=== PATIENT | male | born 2000 | race Caucasian/White ===

== ENCOUNTER 2020-06-03 23:55 | Emergency (ER) | payer BC ==
[2020-06-04] MEDS ORDERED: Ibuprofen 200 MG TAB ONE (01:00)
--- NOTE | 2020-06-04 07:32 | RAD ---
3 views left ankle: 06/04/2020 COMPARISON: None HISTORY: Injury, trauma, pain FINDINGS: There is lateral soft tissue swelling. The talar dome and the ankle mortise appear intact. There is no displaced fracture or dislocation seen. Anterior soft tissue swelling noted on the lateral exam with an ankle joint effusion. IMPRESSION: Soft tissue swelling, ankle joint effusion. No associated fracture or dislocation.
--- NOTE | 2020-06-04 07:32 | RAD ---
2 views left tibia fibula: 06/04/2020 COMPARISON: None HISTORY: Injury, trauma, pain FINDINGS: No fracture or dislocation. No radiopaque foreign body or subcutaneous gas. IMPRESSION: No acute findings.
== END 2020-06-04 01:10 | disposition home or self-care (01) ==
LOC: ERS 23:55
DX: M25.472 Effusion, left ankle (principal); R00.0 Tachycardia, unspecified; X50.9XXA Other and unspecified overexertion or strenuous movements or postures, initial encounter